=== PATIENT | female | born 1960 ===

== ENCOUNTER 2019-03-23 08:30 | Inpatient (IN) | payer OTHER ==
[~2019-03-23] VITALS: Ht 165.1 cm; Wt 77.1 kg
[2019-03-23] MEDS ORDERED: METFORMIN HCL500 M3 PO (09:57)
[2019-04-07] MEDS ORDERED: INSULIN SYRING1 EA25 (08:12)
[2019-04-07] MEDS ORDERED: BUSPIRONE HCL5 MG PO (08:12)
[2019-04-07] MEDS ORDERED: SERTRALINE HCL100 MG PO (08:12)
[2019-04-07] MEDS ORDERED: REFRESH TEARS15 ML (08:12)
[2019-04-07] MEDS ORDERED: MIRALAX510 GM (08:12)
[2019-04-07] MEDS ORDERED: VICKS VAPORUB170 G2 (08:13)
[2019-04-07] MEDS ORDERED: JANUMET XR 1001 EACH (08:13)
[2019-04-07] MEDS ORDERED: PREGABALIN150 MG PO (08:15)
[2019-04-07] MEDS ORDERED: OMEPRAZOLE40 MG PO (08:15)
[2019-04-07] MEDS ORDERED: ATORVASTATIN CA40 MG PO (08:15)
[2019-04-07] MEDS ORDERED: ENSURE LIQUID237 ML (08:16)
[2019-04-07] MEDS ORDERED: LANTUS (08:18)
[2019-04-07] MEDS ORDERED: COLACE100 MG PO (09:31)
[2019-04-07] MEDS ORDERED: PERCOCET 5-3251 EACH PO (09:31)
[2019-04-07] MEDS ORDERED: DIAZEPAM10 MG PO (09:31)
== END 2019-04-08 12:00 | disposition home or self-care (01) | DRG 454 ==
LOC: O/R 04-07 04:57 → SURH 04-07 04:57 → O/R 04-07 08:30 → SURH 04-07 08:30
PROVIDERS: ADMIT Orthopaedic Surgery Orthopaedic Surgery of the Spine
PROC: 0RG2071 Fusion of 2 or more Cervical Vertebral Joints with Autologous Tissue Substitute, Posterior Approach, Posterior Column, Open Approach (ICD-10-PCS; 2019-04-07)
PROC: 0RT30ZZ Resection of Cervical Vertebral Disc, Open Approach (ICD-10-PCS; 2019-04-07)
PROC: 07DS3ZZ Extraction of Vertebral Bone Marrow, Percutaneous Approach (ICD-10-PCS; 2019-04-07)
PROC: 0RG20A0 Fusion of 2 or more Cervical Vertebral Joints with Interbody Fusion Device, Anterior Approach, Anterior Column, Open Approach (ICD-10-PCS; principal; 2019-04-07 07:00)
DX: M47.12 Other spondylosis with myelopathy, cervical region (principal); M50.021 Cervical disc disorder at C4-C5 level with myelopathy; E11.9 Type 2 diabetes mellitus without complications; Z79.4 Long term (current) use of insulin